=== PATIENT | female | born 1955 | race Caucasian/White ===

== ENCOUNTER 2022-06-03 14:48 | Emergency (ER) | payer OTHER ==
[~2022-06-03] VITALS: Ht 172.7 cm; Wt 105.0 kg
[2022-06-03 15:01] VITALS: BP 210/107
[2022-06-03] MEDS ORDERED: IBUPROFEN 600MG TABLET PO STA (19:37)
[2022-06-03] MEDS ORDERED: IBUP-2029 MT (21:12)
== END 2022-06-03 21:27 | disposition home or self-care (01) ==
LOC: ER 14:48
DX: M79.671 Pain in right foot (principal); M72.2 Plantar fascial fibromatosis; E11.9 Type 2 diabetes mellitus without complications; Z86.73 Personal history of transient ischemic attack (TIA), and cerebral infarction without residual deficits
CPT/HCPCS: 73620; 93971; 99284